=== PATIENT | male | born 1980 | race Caucasian/White ===

== ENCOUNTER 2022-04-17 05:33 | Emergency (ER) | payer OTHER ==
[2022-04-17 05:41] VITALS: BP 140/78; PULSE 103; TEMP 98.4; BMI 27.4
[2022-04-17] MEDS ORDERED: DIPHTH,PERTUSS(ACELL),TET 0.5 ML DISP.SYRIN IM ONE ×2 (06:28→06:33)
[2022-04-17] MEDS ORDERED: ACETAMINOPHEN 500 MG TABLET (FP) PO ONE (06:58)
[2022-04-17] MEDS ORDERED: ACETAMINOPHEN 500 MG TABLET (FP) ONE (07:00)
== END 2022-04-17 07:04 | disposition home or self-care (01) ==
LOC: FER 05:33
PROC: 3E0234Z Introduction of Serum, Toxoid and Vaccine into Muscle, Percutaneous Approach (ICD-10-PCS; principal; 2022-04-17)
DX: S16.1XXA Strain of muscle, fascia and tendon at neck level, initial encounter (principal); S60.511A Abrasion of right hand, initial encounter; S60.512A Abrasion of left hand, initial encounter; W22.8XXA Striking against or struck by other objects, initial encounter; Y35.813A Legal intervention involving manhandling, suspect injured, initial encounter
CPT/HCPCS: 70450-TC; 72125-TC; 90471; 90715; 99284-25

== ENCOUNTER 2022-07-26 12:22 | Emergency (ER) | payer OTHER ==
[2022-07-26 12:34] VITALS: BP 127/96; PULSE 96; RESP 20; TEMP 98.2; BMI 23.3
[2022-07-26] MEDS ORDERED: ONDANSETRON 4 MG/2 ML VIAL IVPUSH ONE (12:47)
[2022-07-26] MEDS ORDERED: SODIUM CHLORIDE 0.9% 1000 ML INFUS.BAG IV ONE (12:47)
[2022-07-26] MEDS ORDERED: ONDANSETRON 4 MG/2 ML VIAL ONE (12:52)
[2022-07-26 13:25] LABS: ALBUMIN 4.3 g/dl (3.4-5.0); BILIRUBIN,TOTAL 0.6 mg/dl (0.2-1); CALCIUM 9.4 mg/dl (8.5-10); CREATININE 0.7 mg/dl (0.55-1.3); TOT PROT 7.4 g/dl (6.4-8.2)
== END 2022-07-26 15:12 | disposition home or self-care (01) ==
LOC: FER 12:22
PROC: 3E033GC Introduction of Other Therapeutic Substance into Peripheral Vein, Percutaneous Approach (ICD-10-PCS; principal; 2022-07-26)
DX: F11.20 Opioid dependence, uncomplicated (principal)
CPT/HCPCS: 36415; 80053; 83735; 99284-25

== ENCOUNTER 2023-04-22 20:21 | Emergency (ER) | payer OTHER ==
[2023-04-22] MEDS ORDERED: KETOROLAC TROMETHAMINE 60 MG/2 ML VIAL IM ONE (20:35)
[2023-04-22] MEDS ORDERED: KETOROLAC TROMETHAMINE 60 MG/2 ML VIAL ONE (20:54)
== END 2023-04-22 21:05 | disposition home or self-care (01) ==
LOC: FER 20:21
PROC: 3E0233Z Introduction of Anti-inflammatory into Muscle, Percutaneous Approach (ICD-10-PCS; principal; 2023-04-22)
DX: S39.013A Strain of muscle, fascia and tendon of pelvis, initial encounter (principal); S23.41XA Sprain of ribs, initial encounter; R10.30 Lower abdominal pain, unspecified; R07.89 Other chest pain; X50.0XXA Overexertion from strenuous movement or load, initial encounter; Y93.F2 Activity, caregiving, lifting; Y92.512 Supermarket, store or market as the place of occurrence of the external cause
CPT/HCPCS: 99284-25

== ENCOUNTER 2023-10-30 14:49 | Emergency (ER) | payer OTHER ==
[2023-10-30 16:05] VITALS: BP 115/78; PULSE 101; RESP 18; TEMP 97.7; BMI 28.5
== END 2023-10-30 16:20 | disposition home or self-care (01) ==
LOC: FER 14:49
DX: S39.011A Strain of muscle, fascia and tendon of abdomen, initial encounter (principal); N50.811 Right testicular pain; N50.812 Left testicular pain; X50.9XXA Other and unspecified overexertion or strenuous movements or postures, initial encounter; Y99.0 Civilian activity done for income or pay
CPT/HCPCS: 99283-25